=== PATIENT | male | born 1980 | race Caucasian/White ===

== ENCOUNTER 2025-04-21 14:05 | Emergency (ER) | payer MEDICAID, OTHER ==
[~2025-04-21] VITALS: Ht 170.2 cm; Wt 97.7 kg
--- NOTE | 2025-04-21 14:22 | ED.PDOC ---
HPI Comments This is a 44 year old male ROBERTA presenting to the ED with chief complaint of near-syncope. EMS reports that the patient had multiple episodes of near-syncope today with the patient describing that he started to feel lightheaded when getting up to go to the bathroom this morning. EMS relays that the patient has had similar episodes in the past with the main cause being due to dehydration. EMS notes they provided the patient 500mL of NS IV along with 4mg of Zofran IV. Patient denies any chest pain, SOB, dizziness, vomiting, abdominal pain, headache, or fever. Time Seen by MD: 14:19 Reviewed Notes: Nurses Notes, Rental Representative Notes, Medications, Allergies Allergies: Coded Allergies: NO KNOWN ALLERGIES (Unverified , 04/21/25) Information Source: Patient, Emergency Med Personnel Mode of Arrival: EMS Severity: Moderate Timing: Hours Duration: Since onset Prehospital treatment: None Onset: At Rest Cardiac Risk Factors: None PE Risk Factors: None History of: None Past Medical History PAST MEDICAL HISTORY: Seizures Past Medical History (Other): Legally blind, Brain tumor Surgical History (Other): Brain tumor surgery Family History Family History: Reviewed,noncontributory to illness Social History Smoker: Non-Smoker Alcohol: Denies ETOH Use Drugs: Denies Drug Use Lives In: Home Constitutional: denies: chills, diaphoresis, fatigue, fever, malaise, sweats, weakness, others EENTM: denies: blurred vision, double vision, ear bleeding, ear discharge, ear drainage, ear pain, ear ringing, eye pain, eye redness, hearing loss, mouth pain, mouth swelling, nasal discharge, nose bleeding, nose congestion, nose pain, photophobia, tearing, throat pain, throat swelling, voice changes, others Respiratory: denies: cough, hemoptysis, orthopnea, SOB at rest, shortness of breath, SOB with excertion, stridor, wheezing, others Cardiovascular: reports: lightheadedness; denies: chest pain, dizzy spells, diaphoresis, Dyspnea on exertion, edema, irregular heart beat, left arm pain, palpitations, PND, syncope, others Gastrointestinal: denies: abdomen distended, abdominal pain, blood streaked bowels, constipated, diarrhea, dysphagia, difficulty swallowing, hematemesis, melena, nausea, poor appetite, poor fluid intake, rectal bleeding, rectal pain, vomiting, others Genitourinary: denies: burning, dysuria, flank pain, frequency, hematuria, incontinence, penile discharge, penile sore, pain, testicle pain, testicle swelling, urgency, others Neurological: denies: dizziness, fainting, headache, left sided numbness, left sided weakness, numbness, paresthesia, pre-existing deficit, right sided numbness, right sided weakness, seizure, speech problems, tingling, tremors, weakness, others Musculoskeletal: denies: back pain, gout, joint pain, joint swelling, muscle pain, muscle stiffness, neck pain, others Integumetry: denies: bruises, change in color, change in hair/nails, dryness, laceration, lesions, lumps, rash, wounds, others Allergic/Immunocompromised: denies: Difficulty Healing, Frequent Infections, Hives, Itching, others Hematologic/Lymphatic: denies: anemia, blood clots, easy bleeding, easy bruising, swollen glands, others Endocrine: denies: excessive hunger, excessive sweating, excessive thirst, excessive urination, flushing, intolerance to cold, intolerance to heat, unexplained weight gain, unexplained weight loss, others Psychiatric: denies: anxiety, bipolar disorder, depression, hopeless, panic disorder, schizophrenia, sleepless, suicidal, others All Other Systems: Reviewed and Negative Physical Exam General Appearance: No Apparent Distress, Normal HEENT: Normal ENT Inspection, PERRL/EOMI, Pharynx Normal, TMs Normal, Other (Patient blind due to brain tumor) Neck: Full Range of Motion, Non-Tender, Normal, Normal Inspection Respiratory: Chest Non-Tender, Lungs Clear, No Accessory Muscle Use, No Respiratory Distress, Normal Breath Sounds Cardiovascular: No Edema, No JVD, No Murmur, No Gallop, Normal Peripheral Pulses, Regular Rate/Rhythm Breast Exam: Deferred Gastrointestinal: No Organomegaly, Non Tender, No Pulsatile Mass, Normal Bowel Sounds, Soft Genitalia: Deferred Pelvic: Deferred Rectal: Deferred Extremities: No calf tenderness, Normal capillary refill, Normal inspection, Normal range of motion, Non-tender, No pedal edema Neurologic: Alert, manager security and safety II-XII nml as Tested, Depressed Affect, Fainting, No Motor Deficits, Normal Affect, Normal Mood, No Sensory Deficits Cerebellar Function: NOT DONE Reflexes: NOT DONE Skin: Dry, Normal Color, Warm Peripheral Pulses: 1+ carotid (R), 1+ carotid (L) Lymphatic: No Adenopathy Was a procedure done? Was a procedure done?: No CP Differential Dx Differential Diagnosis: Anxiety / Panic Attack, AV Block 3rd Degree, Electrolyte Disorder, Heart Failure, OR, Renal Failure Differential Diagnosis: N/A Differential Diagnosis: Esophageal reflux/spasm, Pneumonia X-Ray, Labs, Meds, VS Vital Signs Date Time Temp Pulse Resp B/P (MAP) Pulse Ox O2 Delivery O2 Flow Rate FiO2 04/21/25 20:00 71 04/21/25 18:00 55 15 105/73 (84) 94 04/21/25 16:00 60 04/21/25 15:45 63 16 98 Room Air* 0 21 04/21/25 15:45 97.9 63 16 102/69 (80) 98 97.9 04/21/25 14:34 97.7 80 16 111/73 (86) 99 97.7 Lab Test 04/21/25 15:37 Range/Units White Blood Count 10.7 4.4-10.8 10^3/uL Red Blood Count 5.35 4.5-5.90 10^6/uL Hemoglobin 16.5 13.5-17.5 g/dL Hematocrit 47.9 41.0-53.0 % Mean Corpuscular Volume 89.4 80.0-100.0 fL Mean Corpuscular Hemoglobin 30.8 28.0-32.0 pg Mean Corpuscular Hemoglobin Concent 34.5 32.0-36.0 g/dL Red Cell Distribution Width 13.2 11.8-14.3 % Platelet Count 164 140-450 10^3/uL Mean Platelet Volume 9.4 6.9-10.8 fL Neutrophils (%) (Auto) 85.9 H 37.0-80.0 % Lymphocytes (%) (Auto) 8.8 L 10.0-50.0 % Monocytes (%) (Auto) 4.9 0.0-12.0 % Eosinophils (%) (Auto) 0.3 0.0-7.0 % Basophils (%) (Auto) 0.1 0.0-2.0 % Neutrophils # (Auto) 9.2 H 1.6-8.6 10 ^3/uL Lymphocytes # (Auto) 0.9 0.4-5.4 10 ^3/uL Monocytes # (Auto) 0.5 0-1.3 10 ^3/uL Eosinophils # (Auto) 0 0-0.8 10 ^3/uL Basophils # (Auto) 0 0-0.2 10 ^3/uL Nucleated Red Blood Cells 0.0 % Sodium Level 147 H 136-145 mmol/L Potassium Level 4.2 3.5-5.1 mmol/L Chloride Level 107 98-107 mmol/L Carbon Dioxide Level 30 20-31 mmol/L Anion Gap 10 5-15 Blood Urea Nitrogen 14 9-23 mg/dL Creatinine 1.17 0.700-1.30 mg/dL Glomerular Filtration Rate Calc 79 >90 mL/min BUN/Creatinine Ratio 12.0 10.0-20.0 Serum Glucose 93 74-106 mg/dL Calcium Level 10.6 H 8.7-10.4 mg/dL Magnesium Level 2.1 1.6-2.6 mg/dL Total Bilirubin 1.0 0.2-1.0 mg/dL Aspartate Amino Transferase (AST) 21 13-40 U/L Alanine Aminotransferase (ALT) 35 7-40 U/L Alkaline Phosphatase 80 46-116 U/L Troponin I High Sensitivity < 3 L </=54 ng/L Total Protein 6.7 5.7-8.2 g/dL Albumin 4.8 3.2-4.8 g/dL Current Medications Medications (Trade) Dose Ordered Sig/Esmer Route Start Time Stop Time Status Last Admin Sodium Chloride 1,000 ml @ 1,000 mls/hr Q1H ONCE IVB 04/21/25 14:30 04/21/25 15:29 DC 04/21/25 15:49 Dexamethasone Sodium Phosphate (Decadron Injection) 10 mg ONCE ONCE IV 04/21/25 17:15 04/21/25 17:16 DC 04/21/25 17:20 Chest XR: FINDINGS: Lines and Tubes: None Lungs: No focal consolidation. Pleura: No effusion. No pneumothorax. Cardiomediastinal contours: Unremarkable Bones: No acute osseous abnormality. IMPRESSION: No acute cardiopulmonary disease. Head: FINDINGS: There is a large hyperdense lesion/mass which appears to emanate from the sellar region with extensive suprasellar extension measuring 3.1 x 3.9 by 4.7 cm. There is likely mass effect upon the optic chiasm. There is compression upon the cerebral aqueduct resulting in ventriculomegaly. The cavernous internal carotid arteries are likely encased by this lesion. Possible transependymal edema. Frontal encephalomalacia changes. Postsurgical changes of the frontal calvarium / frontal craniotomy. Mastoids well pneumatized. Paranasal sinuses demonstrate mild sphenoid sinus disease. 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 Recommend neurosurgical consultation and MRI brain with and without contrast, pituitary mass protocol to further evaluate. Postsurgical changes of the frontal region/frontal craniotomy, frontal encephalomalacia. X-Ray, Labs, Meds, VS Comment 44-year-old man presented to the emergency room after multiple syncopal episodes patient has a history of tumor brain but has had surgery Troponin is three CBC [id number] with 85.9 and normal H&H CMP negative Magnesium 2.1 CT of the head has large mass within the sellar and suprasellar area at 3.9 x 3.1 x 3.1 which compresses against the cerebral aqueduct resulting in ventriculomegaly I do not know if that is new or old I tried to consult with the neurosurgeon at [facility] doctor to but he was not can reconditioner he is replacement as not answered We called Nayan Tolliver we will was accepted for transfer Images Reviewed?: Images reviewed and evaluated by me Time of 1ST Reevaluation: 15:19 Reevaluation 1ST: Unchanged Patient Education/Counseling: Diagnosis, Treatment, Prognosis, Need For Follow Up Family Education/Counseling: Diagnosis, Treatment, Prognosis, Need For Follow Up, No Family Present SEPSIS Sepsis Screen Physician Orders Chest Portable (04/21/25 14:20) Head Without Contrast (04/21/25 14:20) Viner Operator (04/21/25 14:20) Blood Pressure (04/21/25 14:20) Heplock Iv (04/21/25 14:20) Electrocardigram (04/21/25 14:20) Imaging Transfer Request (04/21/25 19:09) Vital Signs Date Time Temp Pulse Resp B/P (MAP) Pulse Ox O2 Delivery O2 Flow Rate FiO2 04/21/25 20:00 71 04/21/25 18:00 55 15 105/73 (84) 94 04/21/25 16:00 60 04/21/25 15:45 63 16 98 Room Air* 0 21 04/21/25 15:45 97.9 63 16 102/69 (80) 98 97.9 04/21/25 14:34 97.7 80 16 111/73 (86) 99 97.7 Laboratory Tests Test 04/21/25 15:37 White Blood Count 10.7 10^3/uL (4.4-10.8) Medications Medications Dose Ordered Sig/Esmer Route Start Time Stop Time Status Last Admin Dose Admin Dexamethasone Sodium Phosphate 10 mg ONCE ONCE IV 04/21/25 17:15 04/21/25 17:16 DC 04/21/25 17:20 Sodium Chloride 1,000 ml @ 1,000 mls/hr Q1H ONCE IVB 04/21/25 14:30 04/21/25 15:29 DC 04/21/25 15:49 Departure 1 Departure Time of Disposition: 19:14 Impression: Primary Impression: Syncopal episodes Additional Impressions: Cerebral mass Cerebral ventriculomegaly Disposition: 02 SHORT TERM HOSPITAL Condition: Serious Discharged With: Self, Relative Critical Care Note Critical Care Time?: No Stability Stability form required: Yes Comments Patient will be transferred to [facility] direct admit Heart Score Heart Score: Heart Score Response (Comments) Value History N/A 0 EKG N/A 0 Age <45 0 Risk Factors N/A 0 Troponin Normal limit 0 Total 0 I personally scribed for NATALIYA JENNINGS MD ([email or web address]) on 04/21/25 at 14:22. Electronically submitted by Renan Bruner ([email or web address]). I personally scribed for NATALIYA JENNINGS MD ([email or web address]) on 04/21/25 at 14:52. Electronically submitted by Renan Bruner ([email or web address]). I personally scribed for NATALIYA JENNINGS MD ([email or web address]) on 04/21/25 at 15:20. Electronically submitted by Renan Bruner ([email or web address]). NATALIYA JENNINGS MD Apr 21, 2025 14:22
--- NOTE | 2025-04-21 14:48 | DVH ---
EXAM: XY CHEST PORTABLE Indication: Recurrent syncope Technique: Single frontal view of the chest was obtained Comparison: None FINDINGS: Lines and Tubes: None Lungs: No focal consolidation. Pleura: No effusion. No pneumothorax. Cardiomediastinal contours: Unremarkable Bones: No acute osseous abnormality. IMPRESSION: No acute cardiopulmonary disease.
--- NOTE | 2025-04-21 15:10 | DVH ---
CT HEAD WITHOUT CONTRAST Indication: Recurrent syncope EXAM DATE: 04/21/2025 02:27 PM COMPARISON: None TECHNIQUE: CT of the head without intravenous contrast. RADIATION DOSE: CTDIvol: 63.89 mGy, DLP: 1131.09 mGy*cm FINDINGS: There is a large hyperdense lesion/mass which appears to emanate from the sellar region with extensiv e suprasellar extension measuring 3.1 x 3.9 by 4.7 cm. There is likely mass effect upon the optic chi asm. There is compression upon the cerebral aqueduct resulting in ventriculomegaly. The cavernous int ernal carotid arteries are likely encased by this lesion. Possible transependymal edema. Frontal enc ephalomalacia changes. Postsurgical changes of the frontal calvarium / frontal craniotomy. Mastoids well pneumatized. Paran kinsey sinuses demonstrate mild sphenoid sinus disease. 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 Re commend neurosurgical consultation and MRI brain with and without contrast, pituitary mass protocol t o further evaluate. Postsurgical changes of the frontal region/frontal craniotomy, frontal encephalomalacia.
[2025-04-21 15:45] VITALS: PULSE 63; RESP 16; O2SAT 98
[2025-04-21] MEDS: SODIUM CHLORIDE 0.9% 1,000 ML IVB ONE (15:49)
[2025-04-21 16:05] LABS: Hematocrit 47.9 % (41.0-53.0); Hemoglobin 16.5 g/dL (13.5-17.5); Mean Corpuscular Hemoglobin 30.8 pg (28.0-32.0); Mean Corpuscular Volume 89.4 fL (80.0-100.0); Nucleated Red Blood Cells % 0.0 %
[2025-04-21 16:21] LABS: Alanine Aminotransferase 35 U/L (7-40); Albumin 4.8 g/dL (3.2-4.8); Alkaline Phosphatase 80 U/L (46-116); Anion Gap 10 (5-15); BUN/Creatinine Ratio 12.0 (10.0-20.0); Bilirubin, Total 1.0 mg/dL (0.2-1.0); Blood Urea Nitrogen 14 mg/dL (9-23); Calcium 10.6 mg/dL (8.7-10.4); Carbon Dioxide 30 mmol/L (20-31); Chloride 107 mmol/L (98-107); Glucose 93 mg/dL (74-106); Magnesium 2.1 mg/dL (1.6-2.6); Potassium 4.2 mmol/L (3.5-5.1); Sodium 147 mmol/L (136-145); Total Protein 6.7 g/dL (5.7-8.2)
[2025-04-21 19:30] VITALS: PULSE 66; RESP 11; O2SAT 97
[2025-04-22 07:30] VITALS: PULSE 57; RESP 18; O2SAT 96
[2025-04-22 19:50] VITALS: BP 112/70; PULSE 49; RESP 14; TEMP 98; O2SAT 98
== END 2025-04-22 19:12 | disposition short-term general hospital (02) ==
LOC: EDBD 14:05 → ER 14:05
DX: R55 Syncope and collapse (principal); G93.0 Cerebral cysts; G93.89 Other specified disorders of brain; Z98.890 Other specified postprocedural states; Z87.898 Personal history of other specified conditions
CPT/HCPCS: 36415; 70450; 71045; 80053; 83735; 84484; 85025; 96361; 96374; 99285; J1100; J7030